=== PATIENT | male | born 1995 | race Caucasian/White ===

== ENCOUNTER 2021-07-05 13:00 | Day surgery (SDC) | payer BC, OTHER ==
[2021-07-05] MEDS ORDERED: ONDANSETRON 4 MG/2 ML VIAL ONE (13:37)
[2021-07-05 13:38] VITALS: RESP 16
[2021-07-05] MEDS ORDERED: ONDANSETRON 4 MG/2 ML VIAL IVP ONE (13:52)
[2021-07-05] MEDS ORDERED: LACTATED RINGERS 1,000 ML IV ONE ×2 (13:52→17:28)
[2021-07-05] MEDS ORDERED: DEXAMETHASONE SOD PHOSPHATE 4 MG/ML 1 ML VIAL IVP ONE (13:52)
--- NOTE | 2021-07-05 14:08 | P.HPIHPCON ---
History of Present Illness H&P Date: 07/05/21 Chief Complaint: Bilateral ureteral stone This is a 26 yo male with hx of bilateral 5 mm distal ureteral stone. He is been having gross hematuria and mild flank pain, he has not seen the stone pass. I discussed wit him given the present of bilateral ureteral obstruction, recommend proceeding with ureteroscopy to address his stones. discussed the risk of bleeding, infection, injury to the ureter. Discussed given the plan of bilateral ureteroscopy the potential of placing bilateral ureteral stents. He understood all the risk and agreed to proceed with bilateral ureteroscopy, holmium laser lithotripsy, stone basketing and stent insertion. The plan was also discussed with his grandfather, and mother Consent for Procedure: I have explained the operation/procedure to the patient, including the risks, benefits, side effects, alternative therapies (including not receiving the proposed treatment or service), the likelihood of the patient achieving his/her goals, and potential recuperation problems for the procedure/sedation/analgesia, as well as any blood products, if indicated. I also explained to the patient the risks, benefits and side effects of the alternatives, as well as the risks related to not receiving the proposed procedure, care, treatment, or services. Medications and Allergies Home Medications Medication Instructions Recorded Confirmed Type Cephalexin [Keflex] 500 mg PO Q12HR 07/05/21 07/05/21 History Tamsulosin HCl [Flomax] 0.4 mg PO DAILY 07/05/21 07/05/21 History Allergies Allergy/AdvReac Type Severity Reaction Status Date / Time No Known Allergies Allergy Verified 07/05/21 13:34 Surgical - Exam Vital Signs Temp Pulse Resp BP Pulse Ox 97.3 F L 72 16 152/71 99 07/05/21 13:37 07/05/21 13:37 07/05/21 13:37 07/05/21 13:37 07/05/21 13:37 - General no distress, no pain - Eyes normal ocular movement - ENT normal nares, normal mucosa - Respiratory normal expansion, normal respiratory effort - Psychiatric oriented to time, oriented to person, oriented to place Assessment and Plan Assessment: OR for bilateral ureteroscopy, laser lithotripsy, stone basketing and stent i nsertion
--- NOTE | 2021-07-05 15:30 | XR ---
EXAMINATION TYPE: XR KUB DATE OF EXAM: 07/05/2021 COMPARISON: 10/22/2013 HISTORY: Ureteral stone TECHNIQUE: Abdomen is examined in the supine view, projection FINDINGS: Psoas margins are normal. Normal colonic bowel gas is present. Organomegaly is not evident. No suspicious renal calcifications are evident. There are calcifications within the pelvis. Distal ur eteral stones are not excluded. Note is made of hip dysplasia bilaterally greater on the left. IMPRESSION: 1. Calcifications within the pelvis. Distal ureteral stones are not excluded. 2. Bilateral hip dysplasia
[2021-07-05] MEDS ORDERED: PROPOFOL 10 MG/ML 20 ML VIAL IV ONE (15:36)
[2021-07-05] MEDS ORDERED: MIDAZOLAM 2 MG/2 ML VIAL ONE (15:36)
[2021-07-05] MEDS ORDERED: LIDOCAINE 1% INJ 10MG/ML (20 ML MDV) ONE (15:36)
[2021-07-05] MEDS ORDERED: SUCCINYLCHOLINE CHLORIDE 100 MG/5 ML SYR IV ONE (15:36)
[2021-07-05] MEDS ORDERED: fentaNYL (PF) 50 MCG/ML 2 ML AMP ONE (15:36)
[2021-07-05] MEDS ORDERED: SODIUM CHLORIDE 0.9% 50 ML with ceFAZolin 2,000 MG IV ONE ×2 (16:05)
[2021-07-05] MEDS ORDERED: IOHEXOL 350 MG/ML 50 ML in EMPTY BAG 1 BAG IRRIGATION ONE (16:11)
--- NOTE | 2021-07-05 17:24 | P.OP ---
Date of Procedure: 07/05/21 Preoperative Diagnosis: Bilateral ureteral stones Postoperative Diagnosis: Same Procedure(s) Performed: Cystoscopy, bilateral ureteroscopy, holmium is a lithotripsy, stone basketing, retrograde pyelogram and stent insertion and ureteral balloon dilation Implants: 7-Finnish by 26 cm stent was left on a string Anesthesia: LUCIA Surgeon: Humberto Florence Estimated Blood Loss (ml): 10 Pathology: other (bilateral ureteral stones) Condition: stable Disposition: PACU Indications for Procedure: This is a 26 yo male with hx of bilateral 5 mm distal ureteral stone. He is been having gross hematuria and mild flank pain, he has not seen the stone pass. I discussed wit him given the present of bilateral ureteral obstruction, recommend proceeding with ureteroscopy to address his stones. discussed the risk of bleeding, infection, injury to the ureter. Discussed given the plan of bilateral ureteroscopy the potential of placing bilateral ureteral stents. He understood all the risk and agreed to proceed with bilateral ureteroscopy, holmium laser lithotripsy, stone basketing and stent insertion. The plan was also discussed with his grandfather, and mother Operative Findings: Bilateral ureteral orifices narrowing, bilateral distal ureteral stones Description of Procedure: Patient was brought to the operating room, general anesthesia was induced. He was prepped and draped in sterile fashion and placed in dorsal lithotomy position. Cystoscopy fitted with a 21-Finnish sheath was inserted per urethra, cystoscopy was performed which showed no abnormality within the bladder. Attention was then carried to the left ureteral orifice, of note there was narrowing at uVJ. A sensor wire was advanced through the ureteral orifice, next an open-ended catheter was advanced over the wire, retrograde pyelogram was performed which showed a filling defect in the distal ureter with severe hydroureteronephrosis. Next the catheter was removed with the wire in place. Next a ureteral balloon dilator was passed over the wire and the ureteral orifice was dilated using a balloon dilator, under fluoroscopy. Next a semirigid ureteroscope was advanced up the urethra and up the right ureteral orifice, stone was encountered in the distal ureter. Using the holmium laser stone was fragment into small fragments, sizable fragments were removed using a stone basket. Of note even after ureteral dilation there was still narrowing at the distal ureter. At this time the ureteroscope was advanced all the way up into the UPJ which showed no additional stones or injury to the ureter. Pullback ureteroscopy was performed showed no injury to the ureter or any sizable fragments. At this time the ureteroscope was removed and a cystoscope was inserted. The left ureteral orifice was intubated with a sensor wire, next a open-ended catheter was advanced over the wire, retrograde Polygram was performed which showed a filling defect in the distal ureter with severe hydroureteronephrosis. Next a ureteral balloon dilator was passed over the wire, the UVJ was dilated using the balloon dilator. Next a semirigid ureteroscope was inserted and advanced up the left ureteral orifice. A stone was encountered in the distal ureter. Using the holmium laser the stone was fragmented into small fragments,, sizable fragments were removed using the stone basket. Ureteroscope was advanced all the way up to the UPJ which showed no injury to the ureter or any ureteral fragments. Pullback ureteroscopy was performed which showed no injury to the ureter or any sizable fragments. Of note the UVJ was still narrowed even after dilation. As ureteroscope was withdrawn and a sensor wire was advanced through. A ureteral stent was passed over the wire, the proximal curl was visualized on fluoroscopy and distal curl was visualized using the cystoscope. Attention was then carried to the right ureteral orifice and a sensor wire was advanced through, ureteral stent was also passed over the wire proximal curl was visualized on fluoroscopy and distal curl was visualized using cystoscope. The bladder was emptied and into the case. The patient's stents were left on a string and taped to his penis. Patient tolerated the procedure well was taken to recovery in stable condition
[2021-07-05 17:35] VITALS: TEMP 96.8
[2021-07-05 18:23] VITALS: BP 142/89; PULSE 63
--- NOTE | 2021-07-06 06:51 | FL ---
EXAMINATION TYPE: FL urography retrograde DATE OF EXAM: 07/05/2021 CLINICAL HISTORY: Ureter stones TECHNIQUE: Fluoroscopy. COMPARISON: None. FINDINGS: Fluoroscopic guidance was provided during bilateral ureter stent insertion procedure perfo rmed by Dr. Piper. A total of 117 seconds of fluoroscopic time was utilized during the procedure an d 3 spot images was acquired. Images acquired show placement of bilateral double-J ureter stents. IMPRESSION: As Above.
== END 2021-07-05 18:31 | disposition home or self-care (01) ==
LOC: OR 13:00
PROVIDERS: ATTEND Urology
DX: N20.1 Calculus of ureter (principal); Z79.899 Other long term (current) drug therapy; Z87.442 Personal history of urinary calculi
CPT/HCPCS: 82365; 74420; 74018; 52356; C2625; C1758; C1769; J2250; J1100; J2405; J0690; J2001; J3010; J0330; J2704; Q9967

== ENCOUNTER → 2021-08-14 | Outpatient (CLI) | payer BC, OTHER ==
--- NOTE | 2021-08-14 16:15 | US ---
EXAMINATION TYPE: US kidneys/renal and bladder DATE OF EXAM: 08/14/2021 COMPARISON: None CLINICAL HISTORY: 26-year-old male N20.1 CALCULUS OF URETER. TECHNIQUE: Multiple sonographic images of the kidneys and bladder are obtained. FINDINGS: EXAM MEASUREMENTS: Right Kidney: 9.6 X 3.6 X 4.2 cm Left Kidney: 10.2 X 5.9 X 4.7 cm Right Kidney: No hydronephrosis or masses seen Left Kidney: No hydronephrosis or masses seen Bladder: wnl IMPRESSION: No hydronephrosis.
== END | disposition home or self-care (01) ==
LOC: RADUSWWP 14:35
PROVIDERS: ATTEND Urology
DX: N20.0 Calculus of kidney (principal); N20.1 Calculus of ureter
CPT/HCPCS: 76770